=== PATIENT | female | born 1975 | race Caucasian/White ===

== ENCOUNTER 2018-06-19 13:11 | Inpatient (IN) ==
[2018-06-19] MEDS ORDERED: Sodium Chloride 0.9% 1,000 ML PRIMARY IV ONE (13:28)
[2018-06-19] MEDS ORDERED: IPRATROPIUM/ALBUTEROL SULFATE 3 ML NEB NEB ONE (13:29)
[2018-06-19 13:44] LABS: BASOPHILS # (AUTO) 0.01 10*3/UL; BASOPHILS % (AUTO) 0.2 % (0-1); EOSINOPHILS # (AUTO) 0.02 10*3/UL; EOSINOPHILS % (AUTO) 0.5 % (0-8); Hematocrit [HCT] 42.9 % (37.0-47.0); Hemoglobin [HGB] 14.9 g/dL (12.0-16.0); LYMPHOCYTES # (AUTO) 1.36 10*3/uL; MEAN CORPUSCULAR HEMOGLOBIN 28.4 PG (27-31); MEAN CORPUSCULAR HGB CONC 34.7 g/dL (33-37); MEAN CORPUSCULAR VOLUME 81.7 FL (81-99); MONOCYTES # (AUTO) 0.19 10*3/UL (0.3-0.8); MONOCYTES % (AUTO) 4.4 % (5-15); NEUTROPHILS # (AUTO) 2.77 10*3/UL; NEUTROPHILS % (AUTO) 63.5 % (50-80); RED BLOOD COUNT 5.25 10^6/uL (4.20-5.40)
[2018-06-19 13:45] LABS: PLATELET MORPHOLOGY COMMENT NORMAL MORPHOLOGY (NORM); RBC MORPHOLOGY COMMENT NORMAL MORPHOLOGY (NORM); WBC MORPHOLOGY COMMENT NORMAL MORPHOLOGY (NORM)
[2018-06-19 13:55] LABS: BLOOD UREA NITROGEN 9 mg/dL (7-22); SERUM ALBUMIN 4.1 g/dL (3.5-4.8)
--- NOTE | 2018-06-19 15:15 | DI ---
PA /LATERAL CHEST, 06/19/2018 1:29 PM : Clinical History: Cough. Chest pain. Previous Exam: None at this facility. Soft Tissues: No acute soft tissue or bony abnormality. Heart: Normal heart. Lungs: On the PA projection, there is a patchy density just above the left diaphragm with slight incr eased density over the lower thoracic spine on the lateral view. This would be consistent with early pneumonia. There is no pleural effusion. Mediastinum: Normal mediastinum. Nodules: No pulmonary nodules. Bones: Normal. Reading: Patchy density in the left lower lobe consistent with early left lower lobe pneumonia.
[2018-06-19] MEDS ORDERED: Acetaminophen 1000mg Inj 1,000 MG/100 ML VIAL IV PRN (15:26)
[2018-06-19] MEDS: cefTRIAXone Inj 1 GM in Sodium Chloride 0.9% 100 ML IV ONE (16:32)
--- NOTE | 2018-06-19 17:22 | PDOC ---
HPI - History of Present Illness Date of Service: 06/19/18 Time of Service: 18:30 Chief Complaint: Cough, body aches and fever since of 4 days duration History of Present Illness: This is a 42 years old female with medical history significant for history of diabetes, chronic pain syndrome, history of migraine who came into the hospital because of history of cough that started on mostly dry, fever and generalized body aches, pain in the chest when she takes a deep breath decreased appetite and diarrhea she said she tried Tylenol at home and her pain medication but continued to have symptoms and because of that she came into the ER. She did say that she had a history of pneumonia and her symptoms reminded her of previous pneumonia that she had. In the ER evaluation revealed left lower lobe pneumonia she was given antibiotics and was admitted. She didn't eat much today but she is hungry now. No vomiting today no bowel movement yet today. She did say that she had the diarrhea the previous days. Past Medical History Medical History: 1. Diabetes type II on insulin. 2. History of migraine. 3. Chronic pain syndrome, secondary to degenerative the lumbar and cervical spine disease Surgical History: 1. History of cholecystectomy. 2. History of left oophorectomy Pertinent Family History: History of diabetes in the family Past Social History: She smokes half a pack a day for 25 years, no drugs, d oesn't drink. Lives in [place] with her works as a cashier checker. Tobacco Use: Current Every Day Smoker In the Past 12 Months, Have Used or Abuse Any of the Following Substance: None Alcohol Use: None Medication / Allergies Home Medications: Home Medications Medication Instructions Recorded Confirmed Type Blood Sugar Diagnostic [Freestyle 1 ea MC BID #100 strip 06/22/16 06/19/18 Rx Lite Test Strips] Lancets [Freestyle Lancets] 1 ea MC BID #100 ea 06/22/16 06/19/18 Rx pen needle, diabetic 31 gauge x 1 ea MISCELLANEOUS TID #100 ea 08/16/17 06/19/18 Rx 1/6" albuterol sulfate HFA 90 2 puff INH QID #18 g 11/22/17 06/19/18 Rx mcg/actuation aerosol inhaler jdvvdyznri-yroywcpuecypp-ltryusdh 1 cap PO Q4H PRN #60 cap 06/05/18 06/19/18 Rx 50 mg-300 mg-40 mg capsule eszopiclone 2 mg tablet 2 mg PO QHS #30 tab 06/05/18 06/19/18 Rx oxycodone-acetaminophen 5 mg-325 1 tab PO Q4-6H PRN #60 tab 06/05/18 06/19/18 Rx mg tablet Insulin Aspart [Novolog Flexpen] 30 unit SUBCUT AC 06/19/18 06/19/18 History Insulin Glargine Inj [Lantus Inj] 30 unit SUBCUT QD 06/19/18 06/19/18 History Allergies/Adverse Reactions: Allergies Allergy/AdvReac Type Severity Reaction Status Date / Time No Known Allergies Allergy Verified 06/20/18 06:13 Review of Systems - Review of Systems All Systems: Reviewed & No Additional Complaints Except as Stated Exam - Vitals Vital Signs: Vital Signs Temperature 96.8 F Temperature Source Temporal Artery Scan Pulse Rate [Pulse Oximeter] 81 Pulse Rate 85 Respiratory Rate 22 Blood Pressure [Left Arm] 147/100 Pulse Ox 97 Oxygen Delivery Method Room Air Height 5 ft 3 in Weight 200 lb - General General Appearance: Obese Additional General Exam Details: Looks tired. - Head Head Exam: Normal Inspection - Eye Eye Exam: POSITIVE: Normal Appearance - ENT ENT Exam: POSITIVE: Normal Exam - Neck Neck Exam: Normal Inspection - Respiratory Additional Respiratory Exam Details: Few crackles at the left lung base noted - Cardiovascular Cardiovascular Exam: POSITIVE: RRR - GI/Abdominal GI/Abdominal Exam: POSITIVE: Normal Bowel Sounds, Non Tender, Non Distended, Soft, No Organomegaly - Rectal Rectal Exam: POSITIVE: Deferred - External Exam: POSITIVE: Deferred - Extremities Extremities Exam: POSITIVE: Normal Inspection - Back Back Exam: POSITIVE: Normal Inspection - Neurological Neurological Exam: POSITIVE: Alert, Oriented x 3, CN II-XII Intact, No Facial Droop, Speech Intact / Clear, Moves All Extremities Equally - Psychiatric Psychiatric Exam: POSITIVE: Normal Affect - Integumentary Integumentary Exam: POSITIVE: Normal Color Results - Labs CBC and BMP: 06/20/18 04:30 06/20/18 04:30 - Imaging Status: Report Reviewed by Me (Chest x-ray Patchy density in the left lower lobe consistent with early left lower lobe pneumonia. CT chest 1. Normal CTA of the chest. There are no pulmonary emboli or pulmonary infarcts. 2. Bilateral patchy infiltrates, with the majority being pleural-based. There are small pleural effusions bilaterally. Differential for the etiology of these infiltrates would include atypical pneumonia and right-sided septic emboli. The patient clinically is not severely ill and her white count is within normal limits making septic emboli less likely.) Assessment and Plan - Patient Problems (1) Pneumonia Current Visit: Yes Status: Acute Comment: She received a Rocephin will continue with Rocephin and Zithromax. Repeat her labs in the morning. Will send for respiratory panel PCR, will put her also on IV fluid Code(s): J18.9 - Pneumonia, unspecified organism (2) Insulin dependent type 2 diabetes mellitus Current Visit: No Status: Chronic Comment: Continue with her previous insulin and will put her on sliding scale also Code(s): E11.9 - Type 2 diabetes mellitus without complications; Z79.4 - manager intermediate (current) use of insulin (3) Chronic pain syndrome Current Visit: Yes Status: Acute Comment: Continue previous pain medications Code(s): G89.4 - Chronic pain syndrome
[2018-06-19] MEDS ORDERED: LIDOCAINE W/ SODIUM BICARB 0.5 ML SYR SUBD PRN (18:13)
[2018-06-19] MEDS ORDERED: CALCIUM CARBONATE 500 MG (TUMS) CHEWABLE TABLET PO PRN (18:13)
[2018-06-19] MEDS ORDERED: ONDANSETRON 4 MG/2 ML VIAL IVP PRN (18:13)
[2018-06-19] MEDS: oxyCODONE-ACETAMINOPHEN 5-325 TAB PO PRN ×2 (18:47→22:40)
[2018-06-19] MEDS: Lactated Ringers 1,000 ML PRIMARY IV SCH (18:49)
--- NOTE | 2018-06-19 20:37 | PDOC ---
General Adult HPI - General Chief Complaint: Cough / URI Stated Complaint: COUGH, RIB PAIN, DIARRHEA Date Seen by Provider: 06/19/18 Time Seen by Provider: 13:15 Source: POSITIVE: Patient Exam Limitations: POSITIVE: No limitations Nurse's Notes Reviewed & Considered: Yes - History of Present Illness Initial Comment: The patient is a 42-year-old female. She presents to the emergency room with a chief complaint of a 4 day history of cough with some associated chest pain with deep inspiration. She states that last night she had a fever of 103.2F. She also complains of a sore throat and myalgia. She smokes a half a pack of cigarettes per day. She has a history of insulin-dependent type II diabetes mellitus. Have you received a tetanus shot in the past 10 years?: Yes Body Location Affected: REPORTS: Chest Timing: REPORTS: Constant Duration: >24 hours (4 days) Severity: Moderate Quality: REPORTS: "Pain" (Myalgia; some chest pain with deep inspiration) Context: REPORTS: Coughing Modifying Factors: improves with: Breathing, Coughing Similar Symptoms Previously: No Recent Care Received: REPORTS: Denies Any Prior Injuries Related to Current Complaint?: No - Patient Home Medications Home Medications: Home Medications Blood Sugar Diagnostic [Freestyle Lite Test Strips] 1 ea MC BID #100 strip 06/22/16 Lancets [Freestyle Lancets] 1 ea MC BID #100 ea 06/22/16 pen needle, diabetic 31 gauge x /6" 1 ea MISCELLANEOUS TID #100 ea 08/16/17 albuterol sulfate HFA 90 mcg/actuation aerosol inhaler 2 puff INH QID #18 g 11/22/17 uynqjpnayi-orgfgwmljujjf-uatmucbw 50 mg-300 mg-40 mg capsule 1 cap PO Q4H PRN #60 cap 06/05/18 eszopiclone 2 mg tablet 2 mg PO QHS #30 tab 06/05/18 oxycodone-acetaminophen 5 mg-325 mg tablet 1 tab PO Q4-6H PRN #60 tab 06/05/18 Insulin Aspart [Novolog Flexpen] 30 unit SUBCUT AC 06/19/18 Insulin Glargine Inj [Lantus Inj] 30 unit SUBCUT QD 06/19/18 - Patient Allergies Allergies/Adverse Reactions: Allergies Allergy/AdvReac Type Severity Reaction Status Date / Time No Known Allergies Allergy Verified 06/19/18 13:18 Past Medical History - heen HEENT History: Denies History Cardiovascular History: Denies History Respiratory History: Denies History Gastrointestinal History: Denies History Genitourinary History: Denies History Endocrine History: Type 2 Diabetes (insulin) Musculoskeletal History: Denies History, Other (please comment) Prosthesis or Implant: No Additional Musculoskeletal History: DEGENERATIVE DISC DISEASE Neurological History: Denies History Blood Disorders: Denies History Psychiatric History: Anxiety Disorders History of Sexually Transmitted Diseases: No Female Reproductive History: Denies History LMP: 06/01/18 Obstetrical History: Delivery Cancer History: Denies History In Past Year Been Physically Harmed or Verbally Threatened: No History of MDRO: No History of Other Communicable Diseases: No Tobacco Use: Current Every Day Smoker Alcohol Use: Rarely In the Past 12 Months, Have Used or Abuse Any Substance: None Previous Surgical History: Yes Type / Date of Surgery: TONSILLECTOMY AND ADENOIDS. SINUS SURGERY. X 2. BRAIN TUMOR REMOVAL Anesthesia Reactions: No Significant Family History: No pertinent family hx Past Medical History Reviewed: Reviewed - No Changes ROS - Limitations ROS Limitations: No Limitations Constitution: REPORTS: Chills, Fever Cardiovascular: REPORTS: Chest Pain (With deep inspiration) Respiratory: REPORTS: Cough Productive (Of mucoid sputum), Hurts To Breathe Neurological: REPORTS: Denies Neuro Symptoms Gastrointestinal: REPORTS: Denies GI Symptoms Endocrine: REPORTS: Denies Symptoms Musculoskeletal: REPORTS: Muscle Aches Genitourinary: REPORTS: Denies Symptoms Eyes: REPORTS: Denies Symptoms ENT: REPORTS: Sore Throat Skin: REPORTS: Denies Skin Symptoms Lympathic: REPORTS: Denies Lympathic Symptoms Immunologic: POSITIVE: Denies Symptoms Psychiatric: POSITIVE: Denies Psych Symptoms General Adult Exam - General Appearance General Appearance: POSITIVE: Alert, Cooperative, No Acute Distress, No Evidence of Trauma - HEENT HEENT: POSITIVE: Head Inspection Nml, Eyes Inspection Nml, Ears Inspection Nml, Nose Inspection Nml, Oral/Dental Inspect. Nml, PERRL, EOMI, Pharyngeal Erythema. NEGATIVE: Pharynx Inspect. Nml (Pharynx mildly erythematous, without exudate) - Pupils Pupil Size: 4 mm: Bilateral (PERRLA) - Neck Neck: POSITIVE: Normal Inspection, Thyroid Normal - Respiratory Respiratory: POSITIVE: No Respiratory Distress, Chest Non-Tender, Rhonchi (Scattered rhonchi). NEGATIVE: Breath Sounds Normal - Cardiovascular Cardiovascular: POSITIVE: Regular Rate & Rhythm, No Murmur, No Gallop, PMI Normal Peripheral Pulses: Radial (R): 2+, Radial (L): 2+ - Abdomen Abdomen: Soft: (All Quadrants), Normal Bowel Sounds: (All Quadrants), Denies Tenderness: (All Quadrants), No Splenomegaly: (All Quadrants), No Hepatomegaly: (All Quadrants), No Guarding: (All Quadrants), No Rebound: (All Quadrants), No Palpable Pulse: (All Quadrants), No Palpabale Mass: (All Quadrants), No Distention: (All Quadrants), No Rigidity: (All Quadrants) - Back Back: POSITIVE: Normal Inspection - Skin Skin: POSITIVE: Normal Color, Warm, Dry, No Rash - Extremities Extremity: Non-Tender: (All Extremities), Normal ROM: (All Extremities), Normal Inspection: (All Extremities) - Neurological / Psychological Neurological: POSITIVE: Oriented X3, director of infection prevention Normal As Tested, Motor Normal, Sen sation Normal, 5, 6 General Adult Progress - Results Reviewed by me Xrays/CTs/US Reviewed by me: Yes Discussed with Radiologist: Yes Radiology Findings: Chest x-ray shows a small infiltrate in the left lower lung. D-dimer was elevated mildly, so a CTA of the chest was performed, which showed several patchy infiltrates in both lungs and small pleural effusions. Lab Results:: Laboratory Results 06/19/18 06/19/18 06/19/18 13:42 13:44 13:44 WBC 4.36 L RBC 5.25 Hgb 14.9 Hct 42.9 MCV 81.7 MCH 28.4 MCHC 34.7 RDW Std Deviation 42.2 RDW Coeff of Berenice 14.3 Plt Count 214 MPV 9.0 Immature Gran % (Auto) 0.2 Neut % (Auto) 63.5 Lymph % (Auto) 31.2 [place] % (Auto) 4.4 L Eos % (Auto) 0.5 Baso % (Auto) 0.2 Immature Gran # (Auto) 0.01 Neut # (Auto) 2.77 Lymph # (Auto) 1.36 [place] # (Auto) 0.19 L Eos # (Auto) 0.02 Baso # (Auto) 0.01 WBC Morphology Comment Normal morphology Plt Morphology Comment Normal morphology RBC Morph Comment Normal morphology D-Dimer Sodium 137 Potassium 3.6 L Chloride 108 Carbon Dioxide 20 L Anion Gap 9 BUN 9 Creatinine 0.6 Estimated GFR > 60 BUN/Creatinine Ratio 15.00 Glucose 238 H Calculated Osmolality 290.0 Calcium 9.6 Total Bilirubin 0.3 AST 49 H ALT 59 H Alkaline Phosphatase 82 Total Protein 7.1 Albumin 4.1 Globulin 2.9 Albumin/Globulin Ratio 1.40 Group A Strep Screen Negative 06/19/18 13:44 WBC RBC Hgb Hct MCV MCH MCHC RDW Std Deviation RDW Coeff of Berenice Plt Count MPV Immature Gran % (Auto) Neut % (Auto) Lymph % (Auto) [place] % (Auto) Eos % (Auto) Baso % (Auto) Immature Gran # (Auto) Neut # (Auto) Lymph # (Auto) [place] # (Auto) Eos # (Auto) Baso # (Auto) WBC Morphology Comment Plt Morphology Comment RBC Morph Comment D-Dimer 0.91 H Sodium Potassium Chloride Carbon Dioxide Anion Gap BUN Creatinine Estimated GFR BUN/Creatinine Ratio Glucose Calculated Osmolality Calcium Total Bilirubin AST ALT Alkaline Phosphatase Total Protein Albumin Globulin Albumin/Globulin Ratio Group A Strep Screen CBC and BMP: 06/19/18 13:44 06/19/18 13:44 - Patient's Progress Pain Medication Addressed: POSITIVE: Yes (Patient given a gram of acetaminophen IV for her myalgia) School/Work Release Addressed: POSITIVE: Not Applicable Re-Examine Time: 16:00 Re-Examine Comment: Blood cultures 2 were taken in the emergency room and patient was then given 1 g of Rocephin IV. Case was discussed with hospitalist on-call, Dr. Ventura, and patient is admitted to Dr. Ventura for further evaluation and treatment. Status: POSITIVE: Unchanged, Re-Examined Antibiotics Given: Yes (Rocephin, 1 g IV) Quality Measure Initiative: CAP: POSITIVE: SaO2, Antibiotic(s), BC, CXR or CT - Consult Consult (If Yes, Name of Consulting MD & Time Called): Yes (Dr. Ventura, [facility], 1600) Consulting MD will see pt:: POSITIVE: [facility] Admit Counseled: POSITIVE: Patient, RE: Lab Results, RE: Radiology Results, RE: DX, RE: Need for F/U Patient Care Time - Estimated PCT Patient Care Time (In Minutes): 60 Vital Signs - Recent Vital Signs Vital Signs: Vital Signs (Last 8 hours) Temp Pulse Pulse Resp BP Pulse Ox 06/19/18 13:48 96.8 F 81 22 147/100 97 06/19/18 13:39 85 18 97 06/19/18 13:38 79 16 97 - VS Reviewed Vital Signs Reviewed: Yes Discharge Clinical Impression: Pneumonia Discharge Disposition: Admit to Inpatient Condition: Stable Date Decision to Admit to Inpatient: 06/19/18 Time Decision to Admit to Inpatient: 15:40
[2018-06-19] MEDS: Zolpidem Tab 5 MG TAB PO SCH (20:52)
--- NOTE | 2018-06-19 20:53 | DI ---
CT ANGIOGRAM OF THE CHEST, 06/19/2018 2:47 PM : Clinical History: Cough. Chest pain. Elevated D-dimer test. Previous Exam: None at this facility. Scans are performed from the base of the neck to the lower lung bases with IV contrast. 65 mL of Isov ue 370 was injected IV. Proprietary automated bolus tracking software was used to verify the timing o f the injection. The base of the neck and thoracic inlet are normal. There are no abnormal axillary, supraclavicular, mediastinal, or hilar nodes. The heart is normal. The pulmonary arteries are normal. There is no pulm onary arterial hypertension. There is no evidence of pulmonary embolism or pulmonary infarction. Ther e are patchy infiltrates bilaterally with the most prominent infiltrate in the left lower lobe corres ponding to the density seen on the recent chest x-ray. Patchy densities are present in both upper lob es and in the right middle and right lower lobe as well as the lingular segment. Air bronchograms are visualized in those areas with larger infiltrates. The infiltrates in the right lung in the lingular segment are pleural-based. Very small pleural effusions are present bilaterally in the posterior sul ci. Both adrenal glands and the visualized portions of the spleen and pancreas are normal. The liver shows mild diffuse fatty infiltration. READIN. Normal CTA of the chest. There are no pulmonary emboli or pulmonary infarcts. 2. Bilateral patchy infiltrates, with the majority being pleural-based. There are small pleural effu sions bilaterally. Differential for the etiology of these infiltrates would include atypical pneumoni a and right-sided septic emboli. The patient clinically is not severely ill and her white count is wi thin normal limits making septic emboli less likely.
[2018-06-19] MEDS: Insulin Glargine SoloStar Inj 100 UNIT/ML INSULN.PEN SUBCUT SCH (20:54)
[2018-06-19] MEDS: Insulin Lispro Flexpen 300 UNIT/3 ML INSULN.PEN SUBCUT SCH (20:55)
[2018-06-20] MEDS: oxyCODONE-ACETAMINOPHEN 5-325 TAB PO PRN ×5 (02:36→20:32)
[2018-06-20] MEDS: Lactated Ringers 1,000 ML PRIMARY IV SCH (02:38)
[2018-06-20] MEDS: IPRATROPIUM/ALBUTEROL SULFATE 3 ML NEB NEB PRN ×4 (02:48→20:07)
[2018-06-20 04:58] LABS: BASOPHILS # (AUTO) 0.01 10*3/UL; BASOPHILS % (AUTO) 0.3 % (0-1); EOSINOPHILS # (AUTO) 0.01 10*3/UL; EOSINOPHILS % (AUTO) 0.3 % (0-8); Hematocrit [HCT] 37.7 % (37.0-47.0); Hemoglobin [HGB] 12.9 g/dL (12.0-16.0); LYMPHOCYTES # (AUTO) 1.66 10*3/uL; MEAN CORPUSCULAR HEMOGLOBIN 28.2 PG (27-31); MEAN CORPUSCULAR HGB CONC 34.2 g/dL (33-37); MEAN CORPUSCULAR VOLUME 82.3 FL (81-99); MEAN PLATELET VOLUME 9.1 FL (7.4-12.2); MONOCYTES # (AUTO) 0.22 10*3/UL (0.3-0.8); MONOCYTES % (AUTO) 6.1 % (5-15); PLATELET MORPHOLOGY COMMENT NORMAL MORPHOLOGY (NORM); RBC MORPHOLOGY COMMENT NORMAL MORPHOLOGY (NORM); RED BLOOD COUNT 4.58 10^6/uL (4.20-5.40); WBC MORPHOLOGY COMMENT NORMAL MORPHOLOGY (NORM)
[2018-06-20 05:09] LABS: BLOOD UREA NITROGEN 5 mg/dL (7-22); SERUM ALBUMIN 3.2 g/dL (3.5-4.8)
[2018-06-20] MEDS: Insulin Lispro Flexpen 300 UNIT/3 ML INSULN.PEN SUBCUT SCH ×3 (07:48→16:03)
[2018-06-20] MEDS: Insulin Glargine SoloStar Inj 100 UNIT/ML INSULN.PEN SUBCUT SCH ×2 (08:23→20:00)
[2018-06-20] MEDS: POTASSIUM CHLORIDE 20 MEQ TAB PO SCH ×2 (08:23→20:00)
[2018-06-20] MEDS ORDERED: GUAIFENESIN/DM 5 ML UD CUP PO PRN (08:45)
--- NOTE | 2018-06-20 08:51 | PDOC(PROG) ---
Date of Service: 06/20/18 Time of Service: 08:50 Interval History: Subjective Maybe a little bit better but still have the cough, still have the body aches. Still hurts when she takes a deep breath. Objective : Data - Labs CBC and BMP: 06/20/18 04:30 06/20/18 04:30 Objective : Exam - General General Appearance: Cooperative, Obese Additional General Exam Details: Looks tired - Head Head Exam: Normal Inspection - Eye Eye Exam: Normal Appearance - ENT ENT Exam: Normal Exam - Neck Neck Exam: Normal Inspection - Respiratory Additional Respiratory Exam Details: Minimal crackles at the bases - Cardiovascular Cardiovascular Exam: RRR - GI/Abdominal GI/Abdominal Exam: Normal Bowel Sounds, Non Tender, Non Distended, Soft, No Organomegaly - Rectal Rectal Exam: Deferred - External Exam: Deferred Exam: Deferred - Extremities Extremities Exam: Normal Inspection - Back Back Exam: Normal Inspection - Neurological Neurological Exam: Alert, Oriented x 3, CN II-XII Intact, No Facial Droop, Speech Intact / Clear, Moves All Extremities Equally - Psychiatric Psychiatric Exam: Normal Affect - Integumentary Integumentary Exam: Normal Color Assessment and Plan - Patient Problems (1) Pneumonia Current Visit: Yes Status: Acute Comment: Pneumonia continue current antibiotics. The PCR panel showed parainfluenza2. No role for antiviral in immunocompetent person. Not sure if there is a superimposed bacterial infection Code(s): J18.9 - Pneumonia, unspecified organism (2) Insulin dependent type 2 diabetes mellitus Current Visit: No Status: Chronic Comment: Continue Lantus and sliding scale. Code(s): E11.9 - Type 2 diabetes mellitus without complications; Z79.4 - [facility] (current) use of insulin (3) Chronic pain syndrome Current Visit: Yes Status: Acute Comment: Same med Code(s): G89.4 - Chronic pain syndrome (4) Hypokalemia Current Visit: Yes Status: Acute Comment: Will replace potassium Code(s): E87.6 - Hypokalemia
[2018-06-20] MEDS: Acet/Butalb/Caff 325-50-40 1 TAB TABLET PO PRN ×2 (09:20→16:05)
[2018-06-20] MEDS ORDERED: cefTRIAXone Inj 1 GM in Sodium Chloride 0.9% 100 ML IV SCH (18:30)
[2018-06-20] MEDS: Zolpidem Tab 5 MG TAB PO SCH ×2 (20:00→20:32)
[2018-06-21] MEDS: oxyCODONE-ACETAMINOPHEN 5-325 TAB PO PRN ×2 (01:16→05:38)
[2018-06-21] MEDS: Acet/Butalb/Caff 325-50-40 1 TAB TABLET PO PRN ×2 (01:18→09:20)
[2018-06-21 06:14] LABS: BLOOD UREA NITROGEN 6 mg/dL (7-22); SERUM ALBUMIN 3.6 g/dL (3.5-4.8)
[2018-06-21] MEDS: IPRATROPIUM/ALBUTEROL SULFATE 3 ML NEB NEB PRN (06:52)
[2018-06-21] MEDS: Insulin Lispro Flexpen 300 UNIT/3 ML INSULN.PEN SUBCUT SCH ×2 (07:40→11:28)
[2018-06-21] MEDS: Insulin Glargine SoloStar Inj 100 UNIT/ML INSULN.PEN SUBCUT SCH (09:20)
[2018-06-21] MEDS: POTASSIUM CHLORIDE 20 MEQ TAB PO SCH (09:20)
--- NOTE | 2018-06-21 10:09 | DCSUMMARY ---
Hospitalization Summary Admit Date: 06/19/2018 Discharge Date: 06/21/18 Primary Diagnosis:: community acquired pneumonia, parainfluenza virus Secondary Diagnosis:: Secondary bacterial pneumonia Hospital Course: This very pleasant 42-year-old female who was admitted with symptoms consistent with pneumonia. She had an infiltrate on chest x-ray. Her respiratory panel came back positive for parainfluenza virus but negative for influenza. She probably has a secondary bacterial pneumonia. She stated to me on the date of discharge that she was improved in terms of her symptoms. She felt significantly better than when she first came into the hospital. She is not requiring oxygen. She still has a cough that's fairly persistent. On the date of discharge, no complaints of shortness of breath, nausea or vomiting. Assessment and Plan: 1. As per discharge assessments noted 2. Disposition: Patient is discharged home. 3. Condition on discharge, stable and improved. 4. Diet: regular diet 5. Activities: resume normal activities although I have advised the patient not to return to work until 06/26/2018 6. Follow-Up: 1. Marlee Patino on Tuesday 2. Repeat chest x-ray recommended in 6 weeks. 7. Medications at the Time of Discharge: Home Medications Medication Instructions Recorded Confirmed Type Blood Sugar Diagnostic Freestyle 1 ea MC BID #100 strip 06/22/16 06/19/18 Rx Lite Test Strips Lancets Freestyle Lancets 1 ea MC BID #100 ea 06/22/16 06/19/18 Rx pen needle, diabetic 31 gauge x 1 ea MISCELLANEOUS TID #100 ea 08/16/17 06/19/18 Rx 1/" albuterol sulfate HFA 90 2 puff INH QID #18 g 11/22/17 06/19/18 Rx mcg/actuation aerosol inhaler wuogpugvej-cfrespiqrvkja-rcrjollk 1 cap PO Q4H PRN #60 cap 06/05/18 06/19/18 Rx 50 mg-300 mg-40 mg capsule eszopiclone 2 mg tablet 2 mg PO QHS #30 tab 06/05/18 06/19/18 Rx oxycodone-acetaminophen 5 mg-325 1 tab PO Q4-6H PRN #60 tab 06/05/18 06/19/18 Rx mg tablet Insulin Aspart Novolog Flexpen 30 unit SUBCUT AC 06/19/18 06/19/18 History Insulin Glargine Inj Lantus Inj 30 unit SUBCUT QD 06/19/18 06/19/18 History Ascorbic Acid Vitamin C 1,000 mg PO DAILY #30 tablet 06/21/18 Rx Azithromycin Zithromax 500 mg PO DAILY #2 tab 06/21/18 Rx Cefuroxime Axetil Ceftin 500 mg PO BID #8 tablet 06/21/18 Rx Guaifenesin Mucinex 1,200 mg PO BID PRN #60 tab.er.12h 06/21/18 Rx 8. Time, care, counseling and coordination of care for this discharge is less than 30 minutes. Exam - Vitals Vital Signs: Vital Signs Temperature 98.2 F Temperature Source Oral Pulse Rate [Pulse Oximeter] 69 Pulse Rate 69 Respiratory Rate 12 Blood Pressure [Right Arm] 128/89 Blood Pressure [Left Arm] 118/84 Pulse Ox 92 Oxygen Delivery Method Room Air Height 5 ft 3 in Weight 201 lb 1.6 oz - General General Appearance: No Acute Distress, Cooperative - Eye Eye Exam: POSITIVE: No Scleral Icterus - ENT ENT Exam: POSITIVE: Mucous Membranes Moist - Respiratory Respiratory Exam: POSITIVE: Breathing Non Labored, Coarse Breath Sounds (Somewhat coarse in the bases.) - Cardiovascular Cardiovascular Exam: POSITIVE: RRR, No Murmur, No Clicks, No Gallops, No Rubs, No JVD - GI/Abdominal GI/Abdominal Exam: POSITIVE: Normal Bowel Sounds, Non Tender, Non Distended, Soft - Extremities Extremities Exam: POSITIVE: No Clubbing Present, No Edema Present, No Cyanosis Present - Neurological Neurological Exam: POSITIVE: Alert, Oriented x 3, No Facial Droop, Speech Intact / Clear, Moves All Extremities Equally - Psychiatric Psychiatric Exam: POSITIVE: Normal Affect, Normal Mood Data Peritnent Studies: 06/19/18 06/20/18 06/21/18 13:42 04:30 05:50 WBC 3.61 L Hgb 12.9 Hct 37.7 Plt Count 184 Neut % (Auto) 47.0 L Lymph % (Auto) 46.0 Parmer % (Auto) 6.1 Eos % (Auto) 0.3 Baso % (Auto) 0.3 Sodium 141 Potassium 4.2 Chloride 112 Carbon Dioxide 21 L Anion Gap 8 BUN 6 L Creatinine 0.4 L Estimated GFR > 60 Glucose 145 H Calcium 8.8 Total Bilirubin 0.2 L AST 39 ALT 57 H Alkaline Phosphatase 93 Total Protein 6.3 Albumin 3.6 Globulin 2.7 Albumin/Globulin Ratio 1.30 Group A Strep Screen Negative Procedures: [address] [facility] [place] [address] PH: DD: [phone] FAX: [phone] ~DIAGNOSTIC IMAGING REPORT~ Patient: SANIYA VELAZQUEZ : 1975 Sex: F Age: 42 Exam Name: CT CTA Chest Non-Coronary [facility] Exam Date: 06/19/18 Report # : [id number] CPT Code: 14635 EMR/MR #: [id number] Ordering: PATEL CARDENAS Admiting: AUGIE CARRIZALES MD. Primary: Marlee Patino PA-C Attending: AUGIE CARRIZALES MD. Signed CT ANGIOGRAM OF THE CHEST, 06/19/2018 2:47 PM : Clinical History: Cough. Chest pain. Elevated D-dimer test. Previous Exam: None at this facility. Scans are performed from the base of the neck to the lower lung bases with IV contrast. 65 mL of Isovue 370 was injected IV. Proprietary automated bolus tracking software was used to verify the timing of the injection. The base of the neck and thoracic inlet are normal. There are no abnormal axillary, supraclavicular, mediastinal, or hilar nodes. The heart is normal. The pulmonary arteries are normal. There is no pulmonary arterial hypertension. There is no evidence of pulmonary embolism or pulmonary infarction. There are patchy infiltrates bilaterally with the most prominent infiltrate in the left lower lobe corresponding to the density seen on the recent chest x-ray. Patchy densities are present in both upper lobes and in the right middle and right lower lobe as well as the lingular segment. Air bronchograms are visualized in those areas with larger infiltrates. The infiltrates in the right lung in the lingular segment are pleural-based. Very small pleural effusions are present bilaterally in the posterior sulci. Both adrenal glands and the visualized portions of the spleen and pancreas are normal. The liver shows mild diffuse fatty infiltration. READIN. Normal CTA of the chest. There are no pulmonary emboli or pulmonary infarcts. 2. Bilateral patchy infiltrates, with the majority being pleural-based. There are small pleural effusions bilaterally. Differential for the etiology of these infiltrates would include atypical pneumonia and right-sided septic emboli. The patient clinically is not severely ill and her white count is within normal limits making septic emboli less likely. Dictated By: 06/19/182039 ISAMAR BARRIENTOS MD. Signed By: 06/19/182052 ISAMAR BARRIENTOS MD. Patient Problems - Patient Problem List (1) Pneumonia Current Visit: Yes Status: Acute Code(s): J18.9 - Pneumonia, unspecified organism Qualifiers: Pneumonia type: due to unspecified organism Laterality: left Lung location: lower lobe of lung Qualified Code(s): J18.1 - Lobar pneumonia, unspecified organism Category: Medical (2) Parainfluenza virus infection Current Visit: Yes Status: Acute Code(s): B33.8 - Other specified viral diseases Category: Medical (3) Chronic pain syndrome Current Visit: Yes Status: Acute Code(s): G89.4 - Chronic pain syndrome Category: Medical (4) Insulin dependent type 2 diabetes mellitus Current Visit: No Status: Chronic Code(s): E11.9 - Type 2 diabetes mellitus without complications; Z79.4 - FDC (current) use of insulin Category: Medical
[2018-06-21] MEDS ORDERED: cefTRIAXone Inj 2 GM in Sodium Chloride 0.9% 100 ML IV SCH (10:30)
== END 2018-06-21 13:12 | disposition home or self-care (01) | DRG 195 ==
LOC: ER 13:11 → MED/SURG 17:12
PROVIDERS: ADMIT Internal Medicine; ATTEND Internal Medicine